=== PATIENT | female | born 1990 | race Caucasian/White ===

== ENCOUNTER 2017-08-14 08:50 | Day surgery (SDC) | payer BC, OTHER ==
[2017-07-31 15:19] VITALS: BMI 39.0
[~2017-08-14] VITALS: Ht 157.5 cm; Wt 97.3 kg
[~2017-08-14 08:50] MED LIST: ACETAMINOPHEN 1000 MG/100 ML IV IV ONE; FLUO10CA48 PO; LACTATED RINGER'S 1000ML 1,000 ML IV SCH; RANI150T3 PO
[2017-08-14 09:14] VITALS: BP 142/72; PULSE 90; TEMP 36.7; O2SAT 98; Ht 157.5 cm; Wt 97.3 kg
[2017-08-14] MEDS ORDERED: FENTANYL CITRATE INJ 50 MCG/1 ML 2 ML VIAL ONE ×4 (10:54→13:44)
[2017-08-14] MEDS ORDERED: MIDAZOLAM HCL 1 MG/ML 2ML VIAL ONE (10:54)
--- NOTE | 2017-08-14 11:46 | History & Physical Bridge Note ---
H&P Re-Evaluation Bridge Note: I have examined the patient, reviewed the History & Physical and in the interval since the performance of the History & Physical I have noted the following changes of clinical significance: No changes noted mother at bedside all questions answered
[2017-08-14] MEDS ORDERED: CONRAY 60% 50 ML VIAL ONE (12:06)
[2017-08-14] MEDS ORDERED: LIDOCAINE/EPINEPHRINE 1% 20 ML VIAL ONE (12:06)
[2017-08-14] MEDS ORDERED: CISATRACURIUM BESYLATE IV SOLN 2 MG/ML 10 ML VIAL ONE (12:38)
[2017-08-14] MEDS ORDERED: LIDOCAINE HCL 2% 2 ML VIAL (20MG/ML) ONE (12:38)
[2017-08-14] MEDS ORDERED: PROPOFOL IV EMULSION 10 MG/ML 20 ML VIAL IV ONE (12:38)
[2017-08-14] MEDS ORDERED: DEXAMETHASONE SOD INJ 4 MG/ML VIAL ONE (12:40)
[2017-08-14] MEDS ORDERED: ONDANSETRON INJ 2 MG/ML 2 ML VIAL ONE (12:40)
[2017-08-14] MEDS ORDERED: NEOSTIGMINE METHYLSULFATE 5 MG/5 ML SYR ONE (13:01)
[2017-08-14] MEDS ORDERED: GLYCOPYRROLATE INJ 0.2 MG/ML VIAL ONE (13:01)
--- NOTE | 2017-08-14 13:09 | [facility] Post Operative Brief Note ---
Immediate Operative Summary Operative Date Aug 14, 2017. Pre-Operative Diagnosis Symptomatic Cholelithiasis Post-Operative Diagnosis Symptomatic Cholelithiasis Procedure(s) Performed Laparoscopic Cholecystectomy With Attempted Cholangiogram Surgeon Dr. Ben Wilson [place]lemite Operator Surgeon(s) Isabel Houston PA-C Estimated Blood Loss 2ml Findings as preop Specimens Permanent Solution: A.)Gallbladder and Contents
[2017-08-14] MEDS ORDERED: SODIUM CHLORIDE 0.9% 1000ML 1,000 ML IV SCH (13:28)
[2017-08-14] MEDS ORDERED: OXYC-57 PO (13:29)
[2017-08-14] MEDS ORDERED: OXYCODONE/ACETAMINOPHEN 5-325 TAB PO PRN (13:30)
[2017-08-14] MEDS ORDERED: ONDANSETRON INJ 2 MG/ML 2 ML VIAL IV PRN ×2 (13:30→13:45)
--- NOTE | 2017-08-14 13:31 | Discharge Instructions ---
Discharge Instructions Date of Service Aug 14, 2017. Admission Reason for Admission: Symptomatic Cholelithiasis Discharge Discharge Diagnosis / Problem: Symptomatic Cholelithiasis Discharge Goals Goal(s): Decrease discomfort, Improve function Activity Recommendations Activity Limitations: as noted below Lifting Limitations: no more than 10 pounds Exercise/Sports Limitations: until after follow-up appointment May Resume Sexual Activity: after follow-up appointment Shower/Bathe: tomorrow Driving or Machine Use: resume 3 days after discharge . Instructions / Follow-Up Instructions / Follow-Up Please follow-up with Dr. Wilson in the General Surgery Clinic in 1-2 weeks. Please call the office at [phone] to make an appointment if you do not have one already. Please call the office with any questions or concerns. Current Hospital Diet Patient's current hospital diet: Discharge Diet Recommended Diet: Regular Diet Procedures Procedures Performed: Laparoscopic Cholecystectomy With Attempted Cholangiogram Pending Studies Studies pending at discharge: yes List of pending studies: Pathology report. Medical Emergencies . Who to Call and When: Medical Emergencies: If at any time you feel your situation is an emergency, please call 911 immediately. . Non-Emergent Contact Non-Emergency issues call your: Primary Care Provider, Surgeon Call Non-Emergent contact if: temperature is above 101.5, your pain is not controlled, wound has increased drainage, wound has increased redness . "Provider Documentation" section prepared by Isabel Houston. . VTE Core Measure Inpt VTE Proph given/why not?: SCD's [place] Drug Monitoring Program Search Results: patient reviewed within database, no issues identified
[2017-08-14] MEDS ORDERED: PROMETHAZINE HCL INJ 12.5 MG in SODIUM CHLORIDE 0.9% 50ML 50 ML IV PRN (13:45)
[2017-08-14] MEDS ORDERED: ATROPINE SULFATE 0.1 MG/ML 5ML SYR IV PRN (13:45)
[2017-08-14] MEDS ORDERED: LABETALOL HCL IV 5 MG/ML 20ML IV PRN (13:45)
[2017-08-14] MEDS ORDERED: FENTANYL CITRATE INJ 50 MCG/1 ML 2 ML VIAL IV PRN (13:45)
[2017-08-14] MEDS ORDERED: NALOXONE HCL 0.4 MG/1 ML VIAL/CARP IV PRN (13:45)
[2017-08-14] MEDS ORDERED: EpHEDrine SULFATE INJ 50 MG/ML AMP IV PRN (13:45)
[2017-08-14] MEDS ORDERED: FLUMAZENIL 0.1 MG/1 ML 10 ML VIAL IV PRN (13:45)
[2017-08-14 14:10] VITALS: BP 130/65; PULSE 88; TEMP 36.4; O2SAT 97
--- NOTE | 2017-08-14 14:11 | Anesthesiology Progress Note ---
Anesthesia Post Op Note Date & Time Aug 14, 2017 at 14:11 Vital Signs Pain Intensity: 2 Vital Signs Past 12 Hours Date Time Temp Pulse Resp B/P (MAP) Pulse Ox O2 Delivery O2 Flow Rate FiO2 08/14/17 14:06 36.5 08/14/17 14:05 98 14 97 08/14/17 14:05 96 14 08/14/17 14:01 146/72 08/14/17 14:00 89 10 95 08/14/17 14:00 90 10 08/14/17 13:56 144/82 08/14/17 13:55 103 15 08/14/17 13:55 103 15 95 08/14/17 13:51 156/75 08/14/17 13:50 87 15 99 08/14/17 13:50 89 15 08/14/17 13:46 148/84 08/14/17 13:45 94 12 08/14/17 13:45 94 12 99 08/14/17 13:41 149/83 08/14/17 13:40 100 15 100 08/14/17 13:40 99 15 08/14/17 13:36 145/82 08/14/17 13:35 94 13 08/14/17 13:35 93 13 97 08/14/17 13:31 134/96 08/14/17 13:30 83 7 08/14/17 13:30 83 7 99 08/14/17 13:29 153/92 08/14/17 13:25 36.5 78 16 134/96 100 Oxymask 7 08/14/17 09:14 36.7 90 18 142/72 (95) 98 Room Air Notes Mental Status: alert / awake / arousable, participated in evaluation Pt Amnestic to Procedure: Yes Nausea / Vomiting: adequately controlled Pain: adequately controlled Airway Patency, RR, SpO2: stable & adequate BP & HR: stable & adequate Hydration State: stable & adequate Anesthetic Complications: no major complications apparent
[2017-08-14 14:35] VITALS: BP 117/62; PULSE 77; TEMP 36.4; O2SAT 97
[2017-08-14 15:00] VITALS: BP 109/59; PULSE 74; O2SAT 95
[2017-08-14] MEDS: OXYCODONE/ACETAMINOPHEN 5-325 TAB PO PRN ×2 (15:31→16:38)
[2017-08-14 16:00] VITALS: BP 119/70; PULSE 76; O2SAT 95
--- NOTE | 2017-08-14 17:20 | OPERATIVE REPORT ---
DATE OF OPERATION: 08/14/2017 SURGEON: Dr. Wilson. SYSTEMS SUPPORT OFFICER: Dr. Isabel Houston. PREOPERATIVE DIAGNOSES: Chronic cholecystitis, cholelithiasis, symptomatic. POSTOPERATIVE DIAGNOSIS: Same. PROCEDURE: Laparoscopic cholecystectomy, attempted intraoperative cholangiogram. SUMMARY: The patient was brought into the operating room theater. The abdomen was prepped with Betadine solution and properly draped. We made a small incision supraumbilically sufficient enough to place a Veress needle followed by CO2 followed by a 5 mm trocar. Under direct visualization, we placed a 5 mm epigastric port with preemptive local analgesia 1% Xylocaine without epinephrine and we used more local anesthetic and 2 subcostal 3 mm trocar placement. At this point, the patient was placed in reverse Trendelenburg position and returned to the left. We elevated the gallbladder with the lateral graspers, dissected out the triangle of Calot. We identified a very small cystic duct. We were able to get around it. We clipped it proximally. I tried to do a cholangiogram by placing a 4 urethral catheter, transversed the abdominal wall in a 14 Angiocath. A small opening in the cystic duct was made, but I was not able to cannulate the 4 ureteral catheter through the small cystic duct. It was a very tiny duct; therefore, I terminated the attempts, clipped the cystic duct securely x2, removed the catheters. The cystic artery similarly identified, doubly clipped and divided. Gallbladder was removed in the antegrade fashion using electrocautery, leaving the posterior peritoneum intact. The gallbladder was then taken in an Endopouch and taken out intact through the epigastric port. The individual trocars removed and lastly umbilical trocar. Wounds were closed by first placing the camera in the subcostal port and looking at the umbilical fluid and there was no bleeding identified and no adhesion in the anterior abdominal wall. All the trocars were removed. Wounds were closed with 4-0 Monocryl. Steri-Strips applied. The procedure was tolerated well by the patient. Estimated blood loss approximately 2 mL. The patient was taken to recovery in good condition. I attest to the content of the Intraoperative Record and any orders documented therein. Any exception s are noted below.
== END 2017-08-14 16:35 | disposition home or self-care (01) ==
LOC: C.ACU 08:50
PROVIDERS: ATTEND Surgery
DX: K80.10 Calculus of gallbladder with chronic cholecystitis without obstruction (principal); F32.9 Major depressive disorder, single episode, unspecified; Z98.890 Other specified postprocedural states; Z68.39 Body mass index [BMI] 39.0-39.9, adult; E66.9 Obesity, unspecified; Z82.49 Family history of ischemic heart disease and other diseases of the circulatory system

== ENCOUNTER 2021-10-03 07:17 | Inpatient (IN) ==
--- NOTE | 2021-10-03 07:50 | History & Physical Report ---
Date of Service October 03, 2021 Assessment & Plan (1) Encounter for induction of labor: Plan: 31 yo at EGA 40wk3d, LASHELL 3/6 by LMP, uncomplicated , presenting for postdates IOL -Admit to L&D -FHT Category 1 -Start pitocin, AROM -Epidural available on request -Expectant management, anticipate Admission and Anticipated Discharge Date Admission Date: October 03, 2021 History of Present Illness Chief Complaint: Postdates IOL Primary Care Provider: Micha Botello, DO 31 yo at EGA 40wk3d, LASHELL 3/6 by LMP, presenting for postdates IOL +Good FM, +scant VB this morning, mildly painful contractions q6-7min, no LOF. Feeling well at this time, denying nausea/vomiting, abdominal pain, headache. No acute complaints at present. PNI: -COVID+ in early July 2021, vaccinated in October 2020 -Otherwise uncomplicated OBHx: -None GynHx: -Last pap smear reportedly wnl and within last 2-3 years -Menstrual cycles q21-22 days, regular flow -No history of STIs OB Labs: Blood Type A Positive 02/21/21 Antibody Screen NEGATIVE 02/21/21 Hemoglobin 11.6 g/dL (12.0-16.0) L 07/11/21 Hematocrit 34.4 % (37-47) L 07/11/21 Mean Corpuscular Volume 91.3 fL (80-100) 02/21/21 Platelet Count 345 K/uL (130-400) 02/21/21 Rubella IgG Antibody Immune (Immune) 02/21/21 Rapid Plasma Reagin Nonreactive (Nonreactive) 02/21/21 Hepatitis B Surface Antigen Neg (Neg) 02/21/21 HIV (1&2) Ab and P24 Ag, 4th Gener Neg (Neg) 02/21/21 Glucose 1 Hour 50 gm Load 117 mg/dl (70-130) 07/11/21 OB Optional Labs: Chlamydia trachomatis RNA NOT DETECTED (NOT DETECTED) 02/21/21 Neisseria gonorrhoeae RNA NOT DETECTED (NOT DETECTED) 02/21/21 Thyroid Stimulating Hormone (TSH) 0.442 uIu/ml (0.300-4.500) 07/10/19 Allergies Allergy/AdvReac Type Severity Reaction Status Date / Time No Known Allergies Allergy Verified 10/02/21 08:26 Home Medications Medication Instructions Recorded Confirmed Type lactobacillus combination no.4 3 0 cell PO DAILY 02/17/20 10/03/21 History billion cell capsule (Probiotic) [id number] 1 mg 1 tab PO HS 03/12/21 10/03/21 History tablet Past Med/Surg History Medical History Anxiety no meds Depression no meds GERD (gastroesophageal reflux disease) History of chicken pox IBS (irritable bowel syndrome) Symptomatic cholelithiasis Surgical History History of cholecystectomy History of esophagogastroduodenoscopy (EGD) History of mandibular surgery History of wisdom tooth extraction Family History Father Hypertension Mother Fibromyalgia Other Arthritis No family history of adverse response to anesthesia Denies family history of Ovarian cancer Prostate cancer Breast cancer Colorectal cancer Social History (Updated 10/03/21 @ 07:33 by Rachel Villagran RN) Smoking Status: Never smoker Second Hand Exposure: No; Hx Alcohol Use: No Hx Substance Use: No Preferred Language: Portuguese Communication Ability: Effective Visual Impairment: No Limitations Hearing Ability: Normal Bodywork Therapist Required: No Beliefs That Will Affect Care: None marital status: marital status details: Brice Booker (32) [phone] Current Living Situation: Spouse Current Living Situation Comment: Lives with spouse, no pets current occupational status: employed current occupation: [employer] Other Information That Helps Us Care for You: No Feels Safe at Home: Yes Safety Concerns: Feels Safe At This Time Gender Identity: Female Assistive Devices: None Review of Systems Review of Systems: Denies fevers/chills. Denies dyspnea, cough. Denies chest pain. Denies breast pain or discharge. Denies dysuria. Denies headache. Denies back pain. Physical Exam Physical Exam: General: Alert, oriented, no acute distress Cardiac: Regular rate and rhythm, normal S1, S2. No murmurs appreciated. Respiratory: Clear to auscultation b/l with good air flow entry, symmetric chest rise and fall. No wheezes or crackles. No increased work of breathing or accessory muscle use Abdomen: Gravid, soft, nontender. No guarding or CVA tenderness Skin: No rashes or lesions Extremities: Warm, dry, well-perfused with capillary refill <2s b/l. No lower extremity edema, erythema or swelling. Negative Brice's sign b/l. Pelvic Exam per Dr. Renner Dilation: 3-4 cm Effacement: 80% Station: -2 FHR Baseline: 130 BPM Variability: Moderate Accelerations: Present Decelerations: Absent Results & Data Results & [facility] Vital Signs (Past 12 Hours) Vital Signs Pulse BP 10/03/21 07:25 110 H 117/79 Supervising Physician Co-Signing Physician Notes Resident Physician Supervision Note: I interviewed and examined the patient. Discussed with Dr. Asher and agree with findings and plan as documented in the note. Any exceptions or clarifications are listed here: Patient is a 31yowf with iup40 3/7 who presents for induction for postdates. uncomplicated. Noting contractions and spotting overnight. Good fm. Dating by lmp c/w first trimester ultrasound. toco--q3-6min, cx--3-4/80/-2, fetus category one. Plan pit induction, arom as indicated, epidural on demand. Anticipate . Documented By: Annel Renner MD, FACOG Resident Activity Tracking Resident Involvement: Resident Care Provided Care Provided: OB Delivery
[2021-10-03] MEDS ORDERED: OXYTOCIN 30 UNITS/500 ML BAG IV PRN ×3 (08:10→17:20)
[2021-10-03] MEDS: LACTATED RINGER'S 1,000 ML IV PRN ×2 (08:26→12:36)
[2021-10-03 08:37] LABS: Hematocrit (blood only) 38.7 % (37-47); Hemoglobin 13.7 g/dL (12.0-16.0); Mean Corpuscular Hemoglobin 33.5 pg (25-34); Mean Corpuscular Hgb Conc 35.4 g/dL (32-36); Mean Corpuscular Volume 94.6 fL (80-100); Mean Platelet Volume 11.1 fL (7.4-10.4); Platelet Count 255 K/uL (130-400); RDW Coefficient of Variation 13.9 % (11.5-14.5); RDW Standard Deviation 47.9 fL (36.4-46.3); Red Blood Count 4.09 M/uL (4.2-5.4); White Blood Count 15.99 K/uL (4.8-10.8)
--- NOTE | 2021-10-03 08:56 | Medical Student Progress Note ---
Date of Service October 03, 2021 Assessment & Plan Plan: - started Oxytocin 30 units in 500 mls @ 2 mls/hr IV .Q24H PRN - started IV fluids 1,000 mls @ 125 mls/hr IV .Q8H PRN - FHT Category 1 Admission and Anticipated Discharge Date Admission Date: October 03, 2021 Subjective 31 y/o admitted for scheduled at 40 wks gestation baed on last mensrauk period and consistent with first trimester US. Regular FU with OB with no complications. She is in the hospital with her . post date induction Prior to she states her menstrual cycles were regular at 21 days. Denies abnormal bleeding or discharge since her . She notes minimal bleeding this morning. She felt baby move for the entire . Denies LE swelling and edema. She does not measure her BP at home, but denies HTN throughout . Denies discomfort or burning with urination. Denies CAMARA and sudden changes in her vision. NKDA. Does not drink EtOH and does not smoke. Denies recreational drug use. FMHx includes HTN with her Mother and the baby's Father. No congenital conditions in either family. Denies Hx of STI. SHx includes removal of her gallbladder and maxillary facial surgery. She is taking probiotics and vitamins. list labs medical student OBGYN progress note Physical Exam Physical Exam: General: NAD, well appearing, responding appropriately to questions HEENT: No discharge from the eyes. Cardio: RRR, no rubs, murmurs or gallops. Pulm: CTA bilaterally. No labored breaths. ABD: no discomfort upon palpation. no erythema or ecchymosis. MSK: no LE edema/swelling. No pain upon palpation to LE. Cervix Exam per H : 3-4 +/- 2 soft Baby HR: Vital Signs Temp Pulse Resp BP 10/03/21 07:48 37.1 C 110 H 20 117/79 10/03/21 07:25 110 H 117/79 Intake and Output 10/02/21 10/03/21 10/03/21 22:59 06:59 14:59 Other: Weight 99.96 kg Weight Measureme nt Method Last Office Visit Patient Weight 10/04/21 06:59 Weight 99.96 kg Results & Data ([facility]) Vital Signs (Past 12 Hours) Vital Signs Temp Pulse Resp BP 10/03/21 07:48 37.1 C 110 H 20 117/79 10/03/21 07:25 110 H 117/79 Laboratory Results 10/03/21 08:23 WBC 15.99 H RBC 4.09 L Hgb 13.7 Hct 38.7 MCV 94.6 MCH 33.5 MCHC 35.4 RDW Std Deviation 47.9 H RDW Coeff of Eleazar 13.9 Plt Count 255 MPV 11.1 H Medications Administered Current Inpatient Medications Oxytocin (Pitocin) 30 units in 500 mls @ 333.333 mls/hr IV .Q1H30M PRN; Protocol PRN Reason: Bleeding Control Stop: 11/02/21 08:09 Lactated Ringer's (Lr) 1,000 mls @ 125 mls/hr IV .Q8H PRN; Protocol PRN Reason: L&D Protocol Stop: 10/05/21 08:09 Last Admin: 10/03/21 08:26 Dose: 125 mls/hr Documented by: Oxytocin (Pitocin) 30 units in 500 mls @ 2 mls/hr IV .Q24H PRN; Protocol PRN Reason: Labor Induction/Augmentation Stop: 11/02/21 08:55
--- NOTE | 2021-10-03 10:01 | Medical Student H&P ---
Date of Service October 03, 2021 Assessment & Plan Plan: - started Oxytocin 30 units in 500 mls @ 2 mls/hr IV .Q24H PRN - started IV fluids 1,000 mls @ 125 mls/hr IV .Q8H PRN - FHT Category 1 Admission and Anticipated Discharge Date Admission Date: October 03, 2021 History of Present Illness 31 y/o admitted for scheduled at 40 wks gestation based on last menstrual period and consistent with first trimester US. Here for post date IOL. Regular FU with OB with no complications. She is in the hospital with her . Prior to she states her menstrual cycles were regular at 21 days. Denies abnormal bleeding or discharge since her . She notes minimal bleeding this morning. She felt baby move for the entire . Denies LE swelling and edema. She does not measure her BP at home, but denies HTN throughout . Denies discomfort or burning with urination. Denies CAMARA and sudden changes in her vision. NKDA. Does not drink EtOH and does not smoke. Denies recreational drug use. FMHx includes HTN with her Mother and the baby's Father. No congenital conditions in either family. Denies Hx of STI. SHx includes removal of her gallbladder and maxillary facial surgery. She is taking probiotics and vitamins. and Delivery Plans COVID POSITIVE 07/31/21 (SX STARTED 07/28/21) J and and October. Need TDAP at next visit 07/11 Induction October 03 OB Labs: Blood Type A Positive 02/21/21 Antibody Screen NEGATIVE 02/21/21 Hemoglobin 11.6 g/dL (12.0-16.0) L 07/11/21 Hematocrit 34.4 % (37-47) L 07/11/21 Mean Corpuscular Volume 91.3 fL (80-100) 02/21/21 Platelet Count 345 K/uL (130-400) 02/21/21 Rubella IgG Antibody Immune (Immune) 02/21/21 Rapid Plasma Reagin Nonreactive (Nonreactive) 02/21/21 Hepatitis B Surface Antigen Neg (Neg) 02/21/21 HIV (1&2) Ab and P24 Ag, 4th Gener Neg (Neg) 02/21/21 Glucose 1 Hour 50 gm Load 117 mg/dl (70-130) 07/11/21 OB Optional Labs: Chlamydia trachomatis RNA NOT DETECTED (NOT DETECTED) 02/21/21 Neisseria gonorrhoeae RNA NOT DETECTED (NOT DETECTED) 02/21/21 Thyroid Stimulating Hormone (TSH) 0.442 uIu/ml (0.300-4.500) 07/10/19 Labs Reviewed: neg cf/sma--ak low risk panorama--akh declined afp--ak gbs neg Allergies Allergy/AdvReac Type Severity Reaction Status Date / Time No Known Allergies Allergy Verified 10/02/21 08:26 Home Medications Medication Instructions Recorded Confirmed Type lactobacillus combination no.4 3 0 cell PO DAILY 02/17/20 10/03/21 History billion cell capsule (Probiotic) [id number] 1 mg 1 tab PO HS 03/12/21 10/03/21 History tablet Patient History Medical History Anxiety no meds Depression no meds GERD (gastroesophageal reflux disease) History of chicken pox IBS (irritable bowel syndrome) Symptomatic cholelithiasis Surgical History History of cholecystectomy History of esophagogastroduodenoscopy (EGD) History of mandibular surgery History of wisdom tooth extraction Family History Father Hypertension Mother Fibromyalgia Other Arthritis No family history of adverse response to anesthesia Denies family history of Ovarian cancer Prostate cancer Breast cancer Colorectal cancer Social History (Updated 10/03/21 @ 07:33 by Rachel Villagran RN) Smoking Status: Never smoker Second Hand Exposure: No; Hx Alcohol Use: No Hx Substance Use: No Preferred Language: Turkmen Communication Ability: Effective Visual Impairment: No Limitations Hearing Ability: Normal Silver Service Waiter Required: No Beliefs That Will Affect Care: None marital status: marital status details: Brice Booker (32) [phone] Current Living Situation: Spouse Current Living Situation Comment: Lives with spouse, no pets current occupational status: employed current occupation: [employer] Other Information That Helps Us Care for You: No Feels Safe at Home: Yes Safety Concerns: Feels Safe At This Time Gender Identity: Female Assistive Devices: None Physical Exam Physical Exam: General: NAD, well appearing, responding appropriately to questions HEENT: No discharge from the eyes. Cardio: RRR, no rubs, murmurs or gallops. Pulm: CTA bilaterally. No labored breaths. ABD: no discomfort upon palpation. no erythema or ecchymosis. MSK: no LE edema/swelling. No pain upon palpation to LE. Cervix Exam per Dr Renner : 3-4 cm dilated 80% effacement -2 station FHR Baseline: 130 bpm Variability: Moderate Accelerations, present Decelerations, absent Tocol: q3 minutes Results & Data ([facility]) Vital Signs (Past 12 Hours) Vital Signs Temp Pulse Resp BP 10/03/21 09:52 84 133/75 10/03/21 09:37 96 H 20 121/83 10/03/21 09:22 81 20 133/84 10/03/21 07:48 37.1 C 110 H 20 117/79 10/03/21 07:25 110 H 117/79
[2021-10-03] MEDS ORDERED: SODIUM CHLORIDE 0.9% INJ 10 ML VIAL ONE (12:14)
[2021-10-03] MEDS ORDERED: ePHEDrine sulfate 50 MG/ML AMP ONE (12:14)
[2021-10-03] MEDS ORDERED: BUPIVACAINE 0.25% 30 ML VIAL ONE (12:15)
[2021-10-03] MEDS ORDERED: fentaNYL citrate 100 MCG/2 ML VIAL ONE (12:15)
[2021-10-03] MEDS ORDERED: fentaNYL 2MCG/ML ROPIVACAINE 1.25MG/ML 100 ML BAG EPI ONE (12:16)
[2021-10-03] MEDS ORDERED: ePHEDrine sulfate 50 MG/ML AMP IV PRN (12:56)
[2021-10-03] MEDS ORDERED: NALOXONE HCL 1 MG in SODIUM CHLORIDE 0.9% 1000ML 1,000 ML IV PRN (12:56)
[2021-10-03] MEDS ORDERED: diphenhydrAMINE 50 MG/ML VIAL IV PRN (12:56)
[2021-10-03] MEDS ORDERED: ONDANSETRON INJ 2 MG/ML 2 ML VIAL IV PRN (12:56)
[2021-10-03] MEDS ORDERED: PROMETHAZINE HCL 6.25 MG in SODIUM CHLORIDE 0.9% 50 ML IV PRN (12:56)
[2021-10-03] MEDS ORDERED: NALOXONE HCL 0.4 MG/1 ML VIAL/CARP IV PRN (12:56)
[2021-10-03] MEDS ORDERED: fentaNYL 2MCG/ML ROPIVACAINE 1.25MG/ML 100 ML BAG EPI PRN (12:56)
[2021-10-03] MEDS ORDERED: NALBUPHINE HCL INJ 10 MG/ML AMP IV PRN (12:56)
--- NOTE | 2021-10-03 12:56 | Anesthesiology Consultation ---
Date of Service October 03, 2021 Assessment & Plan Chart Review Chart Review: Patient NOT seen in Pre Admission Testing and Acceptable Risk for Labor Epidural Consults Requested none ASA ASA2 Proposed Anesthesia Anesthesia Type: Labor Epidural Risk / Benefits Reviewed With: PT / POA / Parent / Guardian, Accepts Plan and Informed Consent Obtained History Height/Weight Height: 5 ft 2 in Weight: 99.96 kg Allergies Allergy/AdvReac Type Severity Reaction Status Date / Time No Known Allergies Allergy Verified 10/02/21 08:26 Medications Home Medications Medication Instructions Recorded Confirmed Last Taken lactobacillus combination no.4 3 0 cell PO DAILY 02/17/20 10/03/21 10/02/21 21:00 billion cell capsule (Probiotic) [id number] 1 mg 1 tab PO HS 03/12/21 10/03/21 10/02/21 21:00 tablet Active Medications Generic Name Dose Route Start Last Admin Trade Name Freq PRN Reason Stop Dose Admin Lactated Ringer's 1,000 mls @ 125 mls/hr 10/03/21 08:10 10/03/21 12:36 Lr IV 10/05/21 08:09 999 mls/hr .Q8H PRN Administration L&D Protocol Protocol Oxytocin 30 units in 500 mls @ 10 mls/hr 10/03/21 08:56 10/03/21 11:51 Pitocin IV 11/02/21 08:55 0.6 units/hr .Q24H PRN 10 mls/hr Labor Induction/Augmentation Titration Protocol 0.6 UNITS/HR Past Medical History Medical History Anxiety no meds Depression no meds GERD (gastroesophageal reflux disease) History of chicken pox IBS (irritable bowel syndrome) Symptomatic cholelithiasis Exercise / Class Metabolic Activity II 4-5 Yardwork/Stairs/Walk up hill Past Family History Family History Father Hypertension Mother Fibromyalgia Other Arthritis No family history of adverse response to anesthesia Denies family history of Ovarian cancer Prostate cancer Breast cancer Colorectal cancer Past Surgical History Surgical History History of cholecystectomy History of esophagogastroduodenoscopy (EGD) History of mandibular surgery History of wisdom tooth extraction Past Anesthesia History No Hx of Anesthesia Complications and No Family Hx of Anesthesia Complications History of PONV No Hx of PONV and No Hx of Motion Sickness Social History Smoking Status: Never smoker Hx Alcohol Use: No Hx Substance Use: No substance use type: does not use Physical Exam Vital Signs Last Vital Signs Temp 36.8 C 10/03/21 12:27 Pulse 94 H 10/03/21 12:54 Resp 22 10/03/21 12:27 BP 117/61 10/03/21 12:53 Pulse Ox 100 10/03/21 12:54 ENMT Mouth: no dentition abnormality Thyromental Distance: > or= 3.5 Finger Breadths Mallampati Class: II Neck normal visual inspection Respiratory normal respiratory effort Auscultation: lungs clear to auscultation bilaterally Cardiovascular Rate/Rhythm: regular rate and regular rhythm Psychiatric Orientation: alert Testing Laboratory Results 10/03/21 08:23
--- NOTE | 2021-10-03 13:52 | Labor Progress Brief Note ---
Date of Service October 03, 2021 Subjective comfortable after epidural Assessment & Plan (1) Encounter for induction of labor: Plan: continue current plan. hold pit at 10 for now. monitor fetus closely. Admission and Anticipated Discharge Date Admission Date: October 03, 2021 Physical Exam Physical Exam: cx--6/100/-2 arom--clear toco--q2-3, pit at 10 efm--120s with mod variability, had a decel just after epidural and variables with some contractions, good recovery. Occasional one with a late component. Results & Data ([facility]) Vital Signs (Past 12 Hours) Vital Signs Temp Pulse Resp BP Pulse Ox 10/03/21 13:49 114 H 99 10/03/21 13:44 91 H 100 10/03/21 13:43 86 126/69 10/03/21 13:39 110 H 98 10/03/21 13:34 96 H 100 10/03/21 13:29 101 H 99 10/03/21 13:28 94 H 139/80 10/03/21 13:24 91 H 98 10/03/21 13:19 91 H 99 10/03/21 13:14 95 H 99 10/03/21 13:13 98 H 20 134/81 10/03/21 13:09 109 H 98 10/03/21 13:08 102 H 133/82 10/03/21 13:04 90 100 10/03/21 12:59 93 H 100 10/03/21 12:57 86 20 116/59 L 10/03/21 12:55 93 H 112/62 10/03/21 12:54 94 H 100 10/03/21 12:53 91 H 22 117/61 10/03/21 12:51 99 H 117/69 10/03/21 12:49 91 H 20 119/60 100 10/03/21 12:48 88 123/72 10/03/21 12:46 106 H 20 139/71 10/03/21 12:44 93 H 98 10/03/21 12:39 109 H 98 10/03/21 12:27 36.8 C 90 22 120/87 10/03/21 11:54 91 H 123/79 10/03/21 11:23 82 118/74 10/03/21 10:55 100 H 140/83 10/03/21 10:37 77 130/79 10/03/21 10:22 80 131/84 10/03/21 10:07 82 115/73 10/03/21 09:52 84 133/75 10/03/21 09:37 96 H 20 121/83 10/03/21 09:22 81 20 133/84 10/03/21 07:48 37.1 C 110 H 20 117/79 10/03/21 07:25 110 H 117/79 Coding Level of Care Code None Diagnoses Encounter for induction of labor Z34.90
--- NOTE | 2021-10-03 15:50 | Labor Progress Brief Note ---
Date of Service October 03, 2021 Subjective feeling pressure with contractions Assessment & Plan (1) Encounter for induction of labor: Plan: will start second stage soon. fetus overall reassuring with variables with cont ractions. anticipate . Admission and Anticipated Discharge Date Admission Date: October 03, 2021 Physical Exam Physical Exam: cx--small ant lip/c/+1 toco--q2-3, pit at 10 efm--120 with mod variability, variables with contractions Results & Data ([facility]) Vital Signs (Past 12 Hours) Vital Signs Temp Pulse Resp BP Pulse Ox 10/03/21 15:44 95 H 96 10/03/21 15:43 93 H 141/73 H 10/03/21 15:39 108 H 97 10/03/21 15:34 97 H 97 10/03/21 15:29 86 98 10/03/21 15:28 85 126/72 10/03/21 15:24 103 H 99 10/03/21 15:19 92 H 96 10/03/21 15:14 36.7 C 84 20 125/73 96 10/03/21 15:09 98 H 97 10/03/21 15:04 94 H 97 10/03/21 14:59 91 H 124/64 100 10/03/21 14:54 99 H 100 10/03/21 14:53 95 H 90 10/03/21 14:49 90 98 10/03/21 14:44 92 H 95 10/03/21 14:43 88 128/70 10/03/21 14:39 99 H 97 10/03/21 14:34 95 H 96 10/03/21 14:29 98 H 131/77 98 10/03/21 14:24 94 H 100 10/03/21 14:19 98 H 95 10/03/21 14:14 95 H 98 10/03/21 14:13 91 H 146/70 H 10/03/21 14:09 92 H 100 10/03/21 14:04 94 H 98 10/03/21 13:59 94 H 99 10/03/21 13:58 36.7 C 91 H 20 130/77 10/03/21 13:54 95 H 98 10/03/21 13:49 114 H 99 10/03/21 13:44 91 H 100 10/03/21 13:43 86 126/69 10/03/21 13:39 110 H 98 10/03/21 13:34 96 H 100 10/03/21 13:29 101 H 99 10/03/21 13:28 94 H 139/80 10/03/21 13:24 91 H 98 10/03/21 13:19 91 H 99 10/03/21 13:14 95 H 99 10/03/21 13:13 98 H 20 134/81 10/03/21 13:09 109 H 98 10/03/21 13:08 102 H 133/82 10/03/21 13:04 90 100 10/03/21 12:59 93 H 100 10/03/21 12:57 86 20 116/59 L 10/03/21 12:55 93 H 112/62 10/03/21 12:54 94 H 100 10/03/21 12:53 91 H 22 117/61 10/03/21 12:51 99 H 117/69 10/03/21 12:49 91 H 20 119/60 100 10/03/21 12:48 88 123/72 10/03/21 12:46 106 H 20 139/71 10/03/21 12:44 93 H 98 10/03/21 12:39 109 H 98 10/03/21 12:27 36.8 C 90 22 120/87 10/03/21 11:54 91 H 123/79 10/03/21 11:23 82 118/74 10/03/21 10:55 100 H 140/83 10/03/21 10:37 77 130/79 10/03/21 10:22 80 131/84 10/03/21 10:07 82 115/73 10/03/21 09:52 84 133/75 10/03/21 09:37 96 H 20 121/83 10/03/21 09:22 81 20 133/84 10/03/21 07:48 37.1 C 110 H 20 117/79 10/03/21 07:25 110 H 117/79 Coding Level of Care Code None Diagnoses Encounter for induction of labor Z34.90
[2021-10-03] MEDS ORDERED: LIDOCAINE 1% LOCAL 20 ML VIAL ONE (16:30)
--- NOTE | 2021-10-03 16:55 | Delivery Summary ---
Vaginal Delivery Summary Date of Service October 03, 2021 Vaginal Delivery Summary and 2nd Degree LAC Pre-operative Diagnosis: at 40 3/7 weeks Post-operative Diagnosis: same Procedure: pitocin induction epidural arom second degree laceration repair EBL: 300cc Anesthesia: epidural local infiltration to perineum of lidocaine Procedure: Patient presented for postdates induction. STarted with pitocin and then got epidural. Once comfortable, had amniotomy at 6cm. Progressed to c/c/+2 station. The patient pushed for 3-4 contractions to deliver a viable male infant in jace position. The rest of the infant was then delivered without difficulty. The baby was vigorous. The nose and mouth were bulb suctioned and the infant was placed in the maternal abdomen for drying and attention. Cord was clamped and cut at one minute of life. Cord blood obtained. Placenta delivered spontaneous, intact with a three vessel cord. Cervix/sulci/rectum were intact. A second degree perineal laceration was repaired in the normal standard fashion. Hemostasis obtained with dilute pitocin and fundal massage. Apgars were 8/8. Mother and baby doing well at the end of the delivery[place] [facility] [place] Delivery Type Details: and 2nd Degree LAC
[2021-10-03] MEDS ORDERED: IBUPROFEN 600 MG TAB PO PRN (17:20)
[2021-10-03] MEDS ORDERED: ACETAMINOPHEN 325 MG TAB PO PRN (17:20)
[2021-10-03] MEDS ORDERED: BENZOCAINE 20% AER SPR 82.5 GM CAN EXT PRN (17:20)
[2021-10-03] MEDS ORDERED: bisacodyL 10 MG SUPP PR PRN (17:20)
[2021-10-03] MEDS ORDERED: HYDROCORTISONE ACETATE 25 MG SUPP PR PRN (17:20)
[2021-10-03] MEDS ORDERED: DIPHTHERIA/TETANUS/PERTUSSIS 0.5 ML SYR/VIAL IM ONE (17:20)
--- NOTE | 2021-10-03 17:43 | Anesthesia Procedure Note ---
Date of Service October 03, 2021 Anesthesia Post Epidural Note Vital Signs Vital Signs: Temp Pulse Resp BP Pulse Ox 37 C 103 H 20 114/64 73 L 10/03/21 16:58 10/03/21 17:30 10/03/21 17:25 10/03/21 17:30 10/03/21 16:42 Pain Intensity Abdomen: Pain Intensity: 0 Notes Mental Status: alert / awake / arousable Nausea / Vomiting: adequately controlled Pain: adequately controlled Airway Patency, RR, SpO2: stable & adequate BP & HR: stable & adequate Hydration State: stable & adequate Neuraxial Anesthesia: was administered and sensory block is resolving Anesthetic Complications: no major complications apparent and Pt Satisfied with anesthetic care Epidural: Removed without complications and With tip intact
[2021-10-03] MEDS: DOCUSATE SODIUM 100 MG CAP PO SCH (20:29)
--- NOTE | 2021-10-04 05:56 | Obstetrical Progress Note ---
Date of Service <Soniya Asher MD - Last Filed: 10/04/21 06:45> October 04, 2021 Assessment & Plan <Soniya Asher MD - Last Filed: 10/04/21 06:45> (1) Vaginal delivery: 31 yo now PPD1 from at 40+3 -Continue routine care -Vitals reviewed- HDS, afebrile -Blood type A+, GBS-, Rubella immune -Encourage ambulation -Pain control with ibuprofen, acetaminophen PRN -Encourage -Hgb 10.9 today, asymptomatic -F/u in 6 weeks with OB <Annel Renner MD, FACOG - Last Filed: 10/04/21 07:47> (1) Vaginal delivery: Subjective <Soniya Asher MD - Last Filed: 10/04/21 06:45> Ambulation: ambulating normally Voiding: no voiding problems Passing Gas:: Yes Diet Tolerance:: regular diet Lochia:: Small Feeding Type:: breast feeding Current Pain Level(1-10): 0 Pt doing well overall, no acute complaints or distress. Pain well controlled with medication. going well. Passed BM. Review of Systems Denies fever/chills. Denies dyspnea, cough. Denies chest pain. Denies breast pain or discharge. Denies dysuria. Denies headache. Denies back pain. Physical Exam <Soniya Asher MD - Last Filed: 10/04/21 06:45> General: Alert, oriented, no acute distress Cardiac: Regular rate and rhythm, normal S1, S2. No murmurs appreciated. Respiratory: Clear to auscultation b/l with good air flow entry, symmetric chest rise and fall. No wheezes or crackles. No increased work of breathing or accessory muscle use Abdomen: Soft, nontender, nondistended. Fundus firm and palpable at 2 cm below umbilicus. No guarding or rebound. Skin: No rashes or lesions Extremities: Warm, dry, well-perfused with capillary refill <2s b/l. No lower extremity edema, erythema or swelling Results & Data ([facility]) <Soniya Asher MD - Last Filed: 10/04/21 06:45> Vital Signs (Past 12 Hours) Vital Signs Temp Pulse Pulse Resp BP BP Pulse Ox 10/04/21 03:30 36.9 C 79 18 121/77 10/03/21 23:40 36.8 C 90 18 109/73 10/03/21 19:45 36.8 C 112 H 18 108/74 98 10/03/21 19:00 121 H 131/66 10/03/21 18:54 20 10/03/21 18:45 116 H 116/62 10/03/21 18:30 101 H 117/70 10/03/21 18:25 20 10/03/21 18:15 94 H 115/64 10/03/21 18:00 115 H 128/62 10/03/21 17:55 20 <Annel Renner MD, FACOG - Last Filed: 10/04/21 07:47> Co-Signing Physician Notes Resident Physician Supervision Note: I interviewed and examined the patient. Discussed with Dr. Asher and agree with findings and plan as documented in the note. Any exceptions or clarifications are listed here: Doing well. Routine ppd1. Documented By: Annel Renner MD, FACOG Resident Activity Tracking <Soniya Asher MD - Last Filed: 10/04/21 06:45> Resident Involvement: Resident Care Provided Care Provided: OB Delivery
[2021-10-04 06:15] LABS: Hematocrit (blood only) 31.6 % (37-47); Hemoglobin 10.9 g/dL (12.0-16.0); Mean Corpuscular Hemoglobin 32.9 pg (25-34); Mean Corpuscular Hgb Conc 34.5 g/dL (32-36); Mean Corpuscular Volume 95.5 fL (80-100); Mean Platelet Volume 11.1 fL (7.4-10.4); Platelet Count 224 K/uL (130-400); RDW Coefficient of Variation 14.2 % (11.5-14.5); RDW Standard Deviation 49.1 fL (36.4-46.3); Red Blood Count 3.31 M/uL (4.2-5.4)
[2021-10-04] MEDS: PRENATAL VITAMIN 1 TAB PO SCH (08:32)
[2021-10-04] MEDS: DOCUSATE SODIUM 100 MG CAP PO SCH ×2 (08:32→20:18)
[2021-10-04] MEDS ORDERED: bisacodyL 5 MG TABEC PO SCH (20:00)
[2021-10-05 06:08] LABS: Hematocrit (blood only) 32.6 % (37-47); Hemoglobin 11.3 g/dL (12.0-16.0)
--- NOTE | 2021-10-05 06:38 | Obstetrical Progress Note ---
Date of Service <Soniya Asher MD - Last Filed: 10/05/21 07:07> October 05, 2021 Assessment & Plan <Soniya Asher MD - Last Filed: 10/05/21 07:07> (1) Vaginal delivery: 31 yo now PPD2 from at 40+3 -Continue routine care, discharge today -Vitals reviewed- HDS, afebrile -Blood type A+, GBS-, Rubella immune -Pain control with ibuprofen, acetaminophen PRN -Hgb 11.3 today, asymptomatic -F/u in 6 weeks with OB <Karla Reddy MD, FACOG - Last Filed: 10/05/21 07:48> (1) Vaginal delivery: Subjective <Soniya Asher MD - Last Filed: 10/05/21 07:07> Ambulation: ambulating normally Voiding: no voiding problems Passing Gas:: Yes Diet Tolerance:: regular diet Lochia:: Small Feeding Type:: breast feeding Current Pain Level(1-10): 0 Pt doing well overall, no acute complaints or distress. Pain well controlled with medication. going well. Eager to go home. Review of Systems Denies fever/chills. Denies dyspnea, cough. Denies chest pain. Denies breast pain or discharge. Denies dysuria. Denies headache. Denies back pain. Physical Exam <Soniya Asher MD - Last Filed: 10/05/21 07:07> General: Alert, oriented, no acute distress Cardiac: Regular rate and rhythm, normal S1, S2. No murmurs appreciated. Respiratory: Clear to auscultation b/l with good air flow entry, symmetric chest rise and fall. No wheezes or crackles. No increased work of breathing or accessory muscle use Abdomen: Soft, nontender, nondistended. Fundus firm and palpable at 2 cm below umbilicus. No guarding or rebound. Skin: No rashes or lesions Extremities: Warm, dry, well-perfused with capillary refill <2s b/l. No lower extremity edema, erythema or swelling Results & Data ([facility]) <Soniya Asher MD - Last Filed: 10/05/21 07:07> Vital Signs (Past 12 Hours) Vital Signs Temp Pulse Resp BP 10/05/21 04:51 36.6 C 79 18 110/73 10/05/21 00:00 36.7 C 88 20 110/76 10/04/21 20:00 36.6 C 92 H 18 120/79 <Karla Reddy MD, FACOG - Last Filed: 10/05/21 07:48> Co-Signing Physician Notes Resident Physician Supervision Note: I was present with Dr. Asher during the history and exam. I discussed the case with the resident and agree with the findings and plan as documented in the note. Any exceptions or clarifications are listed here: [None] Documented By: Karla Reddy MD, FACOG Resident Activity Tracking <Soniya Asher MD - Last Filed: 10/05/21 07:07> Resident Involvement: Resident Care Provided Care Provided: OB Delivery
[2021-10-05] MEDS: PRENATAL VITAMIN 1 TAB PO SCH (07:59)
[2021-10-05] MEDS: DOCUSATE SODIUM 100 MG CAP PO SCH (07:59)
== END 2021-10-05 10:55 | disposition home or self-care (01) | DRG 807 ==
LOC: 4S1 07:17 → 4S2 19:30

== ENCOUNTER 2024-05-17 07:20 | Inpatient (IN) ==
[2024-05-17] MEDS ORDERED: LIDOCAINE 1% LOCAL 20 ML VIAL INFIL PRN (07:48)
[2024-05-17] MEDS ORDERED: CALCIUM CARBONATE 500 MG CHEWABLE TAB PO PRN (07:48)
[2024-05-17] MEDS ORDERED: OXYTOCIN 30 UNITS/NSS 30 UNITS/500 ML BAG IV PRN ×2 (07:48→17:13)
--- NOTE | 2024-05-17 07:58 | History & Physical Report ---
Date of Service May 17, 2024 Assessment & Plan (1) Encounter for induction of labor: (2) Gestational diabetes mellitus (GDM) requiring insulin: (3) GBS carrier: Plan admit, iv, pcn for gbs, start pitocin, arom when appropriate. fhts categ 1. Admission and Anticipated Discharge Date Admission Date: May 17, 2024 History of Present Illness Chief Complaint: induction Primary Care Provider: Micha Botello DO 33yo at 40 0/7 wks ega with cc of planned induction for gdm on insulin. Patient did take her insulin last night but was emotional this morning leaving her child and so did not eat. No rom, no vb. +FM. no ctx. PNC c/b 1. GDM on insulin, last efw 71% 2. obesity 3. GBS positive. PNL rhpos, ri, gbs pos OBH: x 1 GYNH: nl paps no stds Allergies Allergy/AdvReac Type Severity Reaction Status Date / Time No Known Allergies Allergy Verified 05/13/24 09:53 Home Medications Medication Instructions Recorded Confirmed Type lactobacillus combination no.4 3 3 cell PO DAILY 02/17/20 05/13/24 History billion cell capsule (Probiotic) PNV no.[id number] PO 09/24/23 05/13/24 History [ Gummies] promethazine 12.5 mg tablet 12.5 mg PO Q6H PRN nausea and 10/06/23 05/13/24 Rx vomiting #20 tabs acetone (urine) test (Ketone Urine #50 ea 12/30/23 05/13/24 Rx Test strips) blood sugar diagnostic (OneTouch #150 ea 12/30/23 05/13/24 Rx Verio test strips) blood-glucose meter (OneTouch #1 ea 12/30/23 05/13/24 Rx Verio Reflect Meter) lancets 33 gauge (OneTouch Delica #150 ea 12/30/23 05/13/24 Rx Plus Lancet) insulin NPH isoph U-100 human 100 8 unit (0.08 mL) subcut QPM #15 mL 03/26/24 05/13/24 Rx unit/mL (3 mL) subcutaneous pen (Novolin N FlexPen) pen needle, diabetic 32 gauge x #100 ea 03/26/24 05/13/24 Rx /32" (BD Kristy 2nd Gen Pen Needle) Patient History Medical History (Updated 05/17/24 @ 07:57 by Kimmie Perea MD, FACOG) COVID-19 Vaginal delivery Symptomatic cholelithiasis History of chicken pox IBS (irritable bowel syndrome) Depression no meds Anxiety no meds Surgical History History of cholecystectomy History of esophagogastroduodenoscopy (EGD) History of mandibular surgery History of wisdom tooth extraction Family History Father Hypertension Mother Fibromyalgia Other Arthritis No family history of adverse response to anesthesia Denies family history of Ovarian cancer Prostate cancer Breast cancer Colorectal cancer Social History (Updated 09/24/23 @ 10:49 by Chen Zuñiga) Smoking Status: Never smoker Second Hand Exposure: No; Do You Dip or Chew Tobacco: No; Hx Alcohol Use: No Hx Substance Use: No Preferred Language: Icelandic Communication Ability: Effective Visual Impairment: No Limitations Hearing Ability: Normal Superintendent Horticulture Required: No Beliefs That Will Affect Care: None marital status: marital status details: Brice Booker (35) [phone] Current Living Situation: Spouse and Family Current Living Situation Comment: Lives with spouse, child, no pets current occupational status: employed 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 Feels Safe at Home: Yes Diet: regular Gender Identity: Female Assistive Devices: None Review of Systems as per Subjective / HPI Physical Exam Constitutional: WD/WN, vitals as above Respiratory: normal respiratory effort, lungs clear to auscultation Cardiovascular: Rate/Rhythm: regular rate and regular rhythm Gastrointestinal (Abdomen): soft gravid nt efw 8-9# Musculoskeletal: no edema nontender calves Neurologic: grossly normal Psychiatric: A+Ox3, euthymic affect Genitourinary: Manual OB Exam: + cervical dilation 3 cm, + cervical effacement 50% and + station -2 OB Exam Monitor Tracing: + external FHT monitor used, + external uterine monitor used (irreg q3-5min), + category I and + normal FHT variability Results & Data Vital Signs (Past 12 Hours) Vital Signs Pulse BP 05/17/24 07:36 96 H 125/79 Coding Level of Care Code None Diagnoses Encounter for induction of labor Z34.90 Gestational diabetes mellitus (GDM) requiring insulin O24.414 GBS carrier Z22.330
[2024-05-17 08:15] LABS: Hematocrit (blood only) 38.7 % (37.0-47.0); Hemoglobin 13.7 g/dl (12.0-16.0); Mean Corpuscular Hemoglobin 32.3 pg (25.0-34.0); Mean Corpuscular Hgb Conc 35.4 g/dL (32.0-36.0); Mean Corpuscular Volume 91.3 fL (80.0-100.0); Mean Platelet Volume 11.5 fL (9.4-12.4); Platelet Count 216 K/uL (130-400); RDW Coefficient of Variation 14.5 % (11.5-14.5); RDW Standard Deviation 48.4 fL (36.4-46.3); Red Blood Count 4.24 M/uL (4.20-5.40)
[2024-05-17] MEDS: LACTATED RINGER'S 1,000 ML IV PRN (08:22)
[2024-05-17] MEDS: PENICILLIN GK 6 MU in DEXTROSE 5% 250 ML IV ONE (08:24)
[2024-05-17] MEDS: OXYTOCIN 30 UNITS/NSS 30 UNITS/500 ML BAG IV PRN (09:13)
[2024-05-17] MEDS: PENICILLIN GK 3 MU in DEXTROSE 5% 100 ML IV PRN (12:39)
--- NOTE | 2024-05-17 13:11 | Labor Progress Brief Note ---
Date of Service May 17, 2024 Subjective notes contractions but not painful. Assessment & Plan (1) Gestational diabetes mellitus (GDM) requiring insulin: (2) GBS carrier: (3) Encounter for supervision of normal in multigravida: Plan continue current plan. fetus category one. anticipate , epidural on demand. Admission and Anticipated Discharge Date Admission Date: May 17, 2024 Physical Exam Physical Exam: cx--4/75/-2 toco--q2-4min , pit at 13 efm--130s with mod variability, accels to 160s, no decels arom--clear, trickle Results & Data Vital Signs (Past 12 Hours) Vital Signs Pulse BP 05/17/24 12:08 79 05/17/24 12:08 112/69 05/17/24 11:16 79 05/17/24 11:16 118/70 05/17/24 10:19 88 05/17/24 10:19 121/79 05/17/24 09:17 86 05/17/24 09:17 123/64 05/17/24 08:53 88 05/17/24 08:53 124/78 05/17/24 07:36 96 H 125/79 Coding Level of Care Code None Diagnoses Gestational diabetes mellitus (GDM) requiring insulin O24.414 GBS carrier Z22.330 Encounter for supervision of normal in multigravida Z34.80
[2024-05-17] MEDS ORDERED: LIDOCAINE 2%/EPINEPHRINE 1:200,000 20 ML PF EPI STA (13:53)
[2024-05-17] MEDS ORDERED: fentANYL 2 MCG/ML BUPIVacaine 0.125%-NSS 100ML BAG EPI PRN (13:53)
[2024-05-17] MEDS ORDERED: BUPIVACAINE 0.25% PF 30 ML VIAL EPI PRN (13:53)
[2024-05-17] MEDS ORDERED: ROPIVACAINE 0.5% PF 5 MG/ML 20 ML VIAL EPI PRN (13:53)
[2024-05-17] MEDS ORDERED: NALOXONE HCL 0.4 MG/1 ML VIAL/CARP IV PRN (13:53)
[2024-05-17] MEDS ORDERED: fentaNYL citrate PF 100 MCG/2 ML VIAL EPI PRN (13:53)
[2024-05-17] MEDS ORDERED: NALOXONE HCL 1 MG in SODIUM CHLORIDE 0.9% 1,000 ML IV PRN (13:53)
[2024-05-17] MEDS ORDERED: fentaNYL citrate PF 100 MCG/2 ML VIAL EPI STA (13:53)
[2024-05-17] MEDS ORDERED: SODIUM CHLORIDE 0.9% PF INJ 10 ML VIAL EPI STA (13:53)
[2024-05-17] MEDS ORDERED: ePHEDrine sulfate 50 MG/ML AMP IV PRN (13:53)
[2024-05-17] MEDS ORDERED: LIDOCAINE 2% MPF LOCAL 5 ML VIAL EPI PRN (13:53)
[2024-05-17] MEDS ORDERED: SODIUM CHLORIDE 0.9% PF INJ 10 ML VIAL EPI PRN (13:53)
[2024-05-17] MEDS ORDERED: diphenhydrAMINE 50 MG/ML VIAL IV PRN (13:53)
[2024-05-17] MEDS ORDERED: BUPIVACAINE 0.25% PF 30 ML VIAL EPI STA (13:53)
[2024-05-17] MEDS ORDERED: NALBUPHINE HCL INJ 10 MG/ML AMP IV PRN (13:53)
--- NOTE | 2024-05-17 13:54 | Anesthesiology Consultation ---
Date of Service May 17, 2024 Assessment & Plan Chart Review Chart Review: Acceptable Risk for Labor Epidural Consults Requested none History Height/Weight Height: 5 ft 2 in Weight: 99.79 kg Allergies Allergy/AdvReac Type Severity Reaction Status Date / Time No Known Allergies Allergy Verified 05/13/24 09:53 Medications Home Medications Medication Instructions Recorded Confirmed Last Taken lactobacillus combination no.4 3 3 cell PO DAILY 02/17/20 05/17/24 05/03/24 billion cell capsule (Probiotic) acetone (urine) test (Ketone Urine #50 ea 12/30/23 05/13/24 Unknown Test strips) blood sugar diagnostic (OneTouch #150 ea 12/30/23 05/13/24 Unknown Verio test strips) blood-glucose meter (OneTouch #1 ea 12/30/23 05/13/24 Unknown Verio Reflect Meter) lancets 33 gauge (OneTouch Delica #150 ea 12/30/23 05/13/24 Unknown Plus Lancet) pen needle, diabetic 32 gauge x #100 ea 03/26/24 05/13/24 Unknown 5/32" (BD Kristy 2nd Gen Pen Needle) insulin NPH isoph U-100 human 100 16 unit subcut QPM 05/17/24 05/17/24 05/16/24 unit/mL (3 mL) subcutaneous pen (Novolin N FlexPen) Active Medications Generic Name Dose Route Start Last Admin Trade Name Freq PRN Reason Stop Dose Admin Oxytocin 30 units in 500 mls @ 13 mls/hr 05/17/24 07:48 05/17/24 13:00 Pitocin 30 Units/Nss IV 05/19/24 07:47 0.78 units/hr .Q24H PRN 13 mls/hr Labor Induction/Augmentation Titration Protocol 0.78 UNITS/HR Lactated Ringer's 1,000 mls @ 125 mls/hr 05/17/24 07:48 05/17/24 13:45 Lr IV 05/19/24 07:47 999 mls/hr .Q8H PRN Infusion L&D Protocol Protocol Penicillin G Potassium 3 mu/ 106 mls @ 100 mls/hr 05/17/24 10:49 05/17/24 13:45 Dextrose IV 05/27/24 10:48 Infused Q4H PRN Infusion GBS(+) Until Delivery Past Medical History Medical History (Updated 05/17/24 @ 07:57 by Kimmie Perea MD, FACOG) COVID-19 Vaginal delivery Symptomatic cholelithiasis History of chicken pox IBS (irritable bowel syndrome) Depression no meds Anxiety no meds Past Family History Family History Father Hypertension Mother Fibromyalgia Other Arthritis No family history of adverse response to anesthesia Denies family history of Ovarian cancer Prostate cancer Breast cancer Colorectal cancer Past Surgical History Surgical History History of cholecystectomy History of esophagogastroduodenoscopy (EGD) History of mandibular surgery History of wisdom tooth extraction Social History Smoking Status: Never smoker Do You Dip or Chew Tobacco: No Hx Alcohol Use: No Hx Substance Use: No substance use type: does not use Physical Exam Vital Signs Last Vital Signs Temp 36.8 C 05/17/24 12:08 Pulse 79 05/17/24 12:08 Resp 18 05/17/24 12:08 BP 112/69 05/17/24 12:08 Testing Laboratory Results 05/17/24 07:56 Blood Type A Positive 05/17/24 07:56 Antibody Screen NEGATIVE 05/17/24 07:56 05/17/24 05/17/24 05/17/24 13:33 11:12 07:45 POC Glucose 82 73 83
[2024-05-17] MEDS: LIDOCAINE 2%/EPINEPHRINE 1:200,000 20 ML PF ONE (14:18)
[2024-05-17] MEDS: fentANYL 2 MCG/ML BUPIVacaine 0.125%-NSS 100ML BAG ONE (14:22)
--- NOTE | 2024-05-17 15:57 | Labor Progress Brief Note ---
Date of Service May 17, 2024 Subjective comfortable with some intermittent pressure Assessment & Plan (1) Gestational diabetes mellitus (GDM) requiring insulin: (2) Encounter for induction of labor: (3) GBS carrier: Plan labor down for a bit and then start second stage. fetus category one. Admission and Anticipated Discharge Date Admission Date: May 17, 2024 Physical Exam Physical Exam: cx--ant lip/0 toco--q2-3 min efm--130s wtih mod variability, accels present, early /variable with contractions. Results & Data Vital Signs (Past 12 Hours) Vital Signs Temp Pulse Resp BP Pulse Ox 05/17/24 15:51 90 05/17/24 15:51 121/55 L 05/17/24 15:50 100 05/17/24 15:50 84 05/17/24 15:46 80 05/17/24 15:46 104/60 05/17/24 15:45 100 05/17/24 15:45 78 05/17/24 15:41 83 05/17/24 15:41 87/53 L 05/17/24 15:40 100 05/17/24 15:40 86 05/17/24 15:35 100 05/17/24 15:35 94 H 05/17/24 15:35 98/55 L 05/17/24 15:32 84 05/17/24 15:32 105/55 L 05/17/24 15:30 100 05/17/24 15:30 84 05/17/24 15:26 89 05/17/24 15:26 101/56 L 05/17/24 15:25 100 05/17/24 15:25 79 05/17/24 15:21 90 05/17/24 15:21 87/49 L 05/17/24 15:20 99 05/17/24 15:20 94 H 05/17/24 15:15 99 05/17/24 15:15 91 H 05/17/24 15:10 100 05/17/24 15:10 85 05/17/24 15:10 89/54 L 05/17/24 15:06 83 05/17/24 15:06 93/50 L 05/17/24 15:05 100 05/17/24 15:05 83 05/17/24 15:00 100 05/17/24 15:00 97 H 05/17/24 15:00 100/46 L 05/17/24 14:58 93 H 05/17/24 14:58 98/51 L 05/17/24 14:55 100 05/17/24 14:55 89 05/17/24 14:52 141 H 05/17/24 14:52 107/71 05/17/24 14:50 100 05/17/24 14:50 100 H 05/17/24 14:48 86 05/17/24 14:48 106/49 L 05/17/24 14:46 86 05/17/24 14:46 100/51 L 05/17/24 14:45 99 05/17/24 14:45 83 05/17/24 14:44 83 05/17/24 14:44 98/49 L 05/17/24 14:42 100 H 05/17/24 14:42 94/52 L 05/17/24 14:40 100 05/17/24 14:40 102 H 05/17/24 14:40 85 05/17/24 14:40 101/50 L 05/17/24 14:38 85 05/17/24 14:38 91/50 L 05/17/24 14:35 100 05/17/24 14:35 90 05/17/24 14:35 92 H 05/17/24 14:35 95/49 L 05/17/24 14:34 90 05/17/24 14:34 88/53 L 05/17/24 14:33 86 05/17/24 14:33 101/56 L 05/17/24 14:30 99 05/17/24 14:30 93 H 05/17/24 14:30 118/69 05/17/24 14:28 100 H 05/17/24 14:28 141/61 H 05/17/24 14:27 107 H 05/17/24 14:27 139/81 05/17/24 14:25 99 05/17/24 14:25 104 H 05/17/24 14:24 91 H 05/17/24 14:24 128/71 05/17/24 14:22 88 05/17/24 14:22 124/68 05/17/24 14:20 99 05/17/24 14:20 97 H 05/17/24 14:20 93 H 05/17/24 14:20 120/67 05/17/24 14:18 84 05/17/24 14:18 119/58 L 05/17/24 14:15 98 05/17/24 14:15 100 H 05/17/24 14:15 92 05/17/24 14:15 105 H 05/17/24 14:10 100 05/17/24 14:10 106 H 05/17/24 12:08 18 05/17/24 12:08 36.8 C 18 05/17/24 12:08 79 05/17/24 12:08 112/69 05/17/24 11:16 79 05/17/24 11:16 118/70 05/17/24 10:19 88 05/17/24 10:19 121/79 05/17/24 09:17 86 05/17/24 09:17 123/64 05/17/24 08:53 88 05/17/24 08:53 124/78 05/17/24 07:36 96 H 125/79 Coding Level of Care Code None Diagnoses Gestational diabetes mellitus (GDM) requiring insulin O24.414 Encounter for induction of labor Z34.90 GBS carrier Z22.330
--- NOTE | 2024-05-17 16:47 | Delivery Summary ---
Vaginal Delivery Summary Date of Service May 17, 2024 Vaginal Delivery Summary and 2nd Degree LAC Pre-operative Diagnosis: at 40 weeks A2gdm gbs positive Post-operative Diagnosis: same Procedure: pitocin arom epidural second degree laceration and repair QBL: 116cc Anesthesia: epidural Procedure: Patient presented to labor and delivery for IOL for a2gdm. Cervix favorable. Got pitocin, arom and epidural. Progressed to c/c/+2. The patient pushed for 5 min to deliver a viable female in jace position. The nose and mouth were bulb suctioned on the perineum and the rest of the infant was then delivered without difficulty. The baby was vigorous. The nose and mouth were again bulb suctioned and the infant was placed in the maternal abdomen for drying and attention after clamping and cutting a very short cord. Cord blood and segment obtained. Placenta delivered spontaneous, intact with a three vessel cord. Cervix/sulci/rectum were intact. A second degree perineal laceration was repaired in the normal standard fashion. Hemostasis obtained with dilute pitocin and fundal massage. Apgars were 8/9. Mother and baby doing well at the end of the delivery. [facility] [place] Charge Delivery Type Details: and 2nd Degree LAC
[2024-05-17] MEDS ORDERED: oxyCODONE/ACETAMINOPHEN 5mg/325mg TAB PO PRN (17:13)
[2024-05-17] MEDS ORDERED: HYDROCORTISONE ACETATE 25 MG SUPP PR PRN (17:13)
[2024-05-17] MEDS ORDERED: bisacodyL 10 MG SUPP PR PRN (17:13)
--- NOTE | 2024-05-17 17:21 | Anesthesia Procedure Note ---
Date of Service May 17, 2024 Anesthesia Post Epidural Note Vital Signs Vital Signs: Temp Pulse Resp BP Pulse Ox 36.8 C 97 H 18 127/62 96 05/17/24 12:08 05/17/24 17:10 05/17/24 16:56 05/17/24 17:10 05/17/24 16:45 Pain Intensity Left Abdomen: Pain Intensity: 0 Notes Mental Status: alert / awake / arousable and participated in evaluation Nausea / Vomiting: adequately controlled Pain: adequately controlled Airway Patency, RR, SpO2: stable & adequate BP & HR: stable & adequate Hydration State: stable & adequate Neuraxial Anesthesia: was administered and sensory block is resolving Anesthetic Complications: no major complications apparent and Pt Satisfied with anesthetic care Epidural: Removed without complications and With tip intact
[2024-05-17] MEDS: BUPIVACAINE 0.25% PF 30 ML VIAL ONE (18:20)
[2024-05-17] MEDS: ePHEDrine sulfate 50 MG/ML AMP ONE (18:20)
[2024-05-17] MEDS: fentaNYL citrate PF 100 MCG/2 ML VIAL ONE (18:20)
[2024-05-17] MEDS: DIPHTHER/TETAN/PERTUS Vaccine (Tdap, Adol/Adult) 0.5mL IM ONE (18:21)
[2024-05-17] MEDS: SODIUM CHLORIDE 0.9% PF INJ 10 ML VIAL ONE (18:21)
[2024-05-17] MEDS: BENZOCAINE 20% SPRY 85 APPLN/85 GM CAN EXT PRN (19:10)
[2024-05-17] MEDS: ACETAMINOPHEN 325 MG TAB PO PRN (20:44)
[2024-05-17] MEDS: DOCUSATE SODIUM 100 MG CAP PO SCH (20:44)
[2024-05-17 23:21] VITALS: RESP 18
--- NOTE | 2024-05-18 05:56 | Obstetrical Progress Note ---
Date of Service <Narciso ZamudioDO hilario - Last Filed: 05/18/24 06:50> May 18, 2024 Assessment & Plan <Narciso ZamudioDO hilario - Last Filed: 05/18/24 06:50> (1) state: Patient is a 33yo pp day 1 s/p complicated by 2nd degree perineal lac during delivery. Feeling well today, VSS this morning. Continue care Ambulation and as tolerated Pain control with ibuprofen, Percocet as needed Hgb: 13.7 yesterday (05/17/24) Home: today if possible Follow up with Dr. Renner in 6wks (2) Perineal laceration during delivery: Small 2nd deg lac repaired in the normal standard fashion. Monitor for signs of infection Perineal laceration degree: second degree Qualified Code(s): O70.1 - Second degree perineal laceration during delivery <Annel Renner MD, FACOG - Last Filed: 05/18/24 07:21> (1) state: (2) Perineal laceration during delivery: Subjective <Narciso ZamudioDO hilario - Last Filed: 05/18/24 06:50> Patient is a 33yo pp day 1 s/p complicated by 2nd degree perineal lac during delivery. VSS this morning. Ambulating: yes Voiding: urine but no BM yet Passing gas: yes Diet tolerance: yes, ob regular Lochia: decreasing Feeding type: breast, bottle if necessary Current pain: minimal Feeling well this morning, resting comfortably in NAD. Denies fever, body aches, chills, headache, vision changes, chest pain, SOB, LE pain/swelling, or LE numbness/tingling. Review of Systems as above Physical Exam <Narciso CarboneSimeon MaryDO hilario - Last Filed: 05/18/24 06:50> General: A&Ox4, resting comfortably in NAD, nontoxic in appearance Skin: warm, dry, intact HEENT: NC/AT, anicteric sclerae, conjunctive w/o injection, moist mucous membranes Heart: +s1/s2, RRR, no murmurs, rubs, or gallops Lungs: equal air entry b/l, clear to auscultation, no wheeze, rales, or rhonchi Abd: +BS, no TTP or significant swelling, uterine fundus firm at level of umbilicus Ext: no significant erythema/swelling, no tenderness to palpation, negative Birce's, no clubbing/cyanosis Neuro: speech intact, no facial droop, moves all extremities Results & Data <Narciso Hernandez DO - Last Filed: 05/18/24 06:50> Vital Signs (Past 12 Hours) Vital Signs Temp Pulse Pulse Resp BP BP Pulse Ox 05/18/24 03:45 36.5 C 85 18 124/78 96 05/17/24 23:00 36.5 C 82 18 113/73 95 05/17/24 20:15 36.6 C 84 16 113/72 96 05/17/24 18:40 104 H 18 132/78 05/17/24 18:40 104 H 132/78 05/17/24 18:11 95 H 05/17/24 18:11 123/73 05/17/24 18:10 95 H 18 123/73 O2 Del Method 05/18/24 03:45 Room Air 05/17/24 23:00 Room Air 05/17/24 20:15 Room Air 05/17/24 18:40 05/17/24 18:40 05/17/24 18:11 05/17/24 18:11 05/17/24 18:10 Supervising Physician <Annel Renner MD, FACOG - Last Filed: 05/18/24 07:21> Co-Signing Physician Notes Resident Physician Supervision Note: I interviewed and examined the patient. Discussed with Dr. Hernandez and agree with findings and plan as documented in the note. Any exceptions or clarifications are listed here: Doing well. Would desire d/c later today if baby d/c. d/c instructions reviewed. Documented By: Annel Renner MD, FACOG Resident Activity Tracking <Narciso Hernandez DO - Last Filed: 05/18/24 06:50> Resident Involvement: Resident Care Provided Care Provided: OB Delivery
[2024-05-18 07:03] LABS: Hematocrit (blood only) 35.9 % (37.0-47.0); Hemoglobin 12.4 g/dl (12.0-16.0)
[2024-05-18] MEDS: PRENATAL VITAMIN 1 TAB PO SCH (07:55)
[2024-05-18] MEDS: IBUPROFEN 600 MG TAB PO PRN (07:55)
[2024-05-18 09:32] VITALS: O2SAT 97
[2024-05-18 13:26] VITALS: BP 107/72; TEMP 98.1
[2024-05-18 13:56] VITALS: PULSE 85
[2024-05-18] MEDS ORDERED: bisacodyL 5 MG TABEC PO SCH (20:00)
== END 2024-05-18 17:10 | disposition home or self-care (01) | DRG 806 ==
LOC: 4S1 07:20 → 4E2 19:33